=== PATIENT | male | born 1950 | race Caucasian/White ===

== ENCOUNTER 2023-12-25 08:59 | Day surgery (SDC) | payer MEDICARE, SELFPAY ==
[2023-12-21 14:09] VITALS: BMI 29.6
--- NOTE | 2023-12-24 09:34 | HO.ANESPROP2 ---
Documented by User: Rizwana Meza NP 12/24/23 09:37 HPI - Anesthesia Eval Consult details Narrative: 73yo M for Upper Endoscopy and Colonoscopy Follows [facility] q2 years. Last office visit 11/2023. Pt stable, very active with bike riding and splitting wood. [facility] Past Medical History Medical History Arthritis Low back pain History of skin cancer History of prostate cancer Mitral regurgitation PVC's (premature ventricular contractions) Impaired glucose tolerance Hyperlipidemia Hypertension GERD (gastroesophageal reflux disease) Surgical History Surgical History Hx of hernia repair (~2013) Hx of colonoscopy History of esophagogastroduodenoscopy (EGD) Social History Social History Patient Tobacco Use Status: Never used Tobacco Meds Allergies Allergy/AdvReac Type Severity Reaction Status Date / Time Sulfa (Sulfonamide Allergy Rash Verified 12/21/23 14:40 Antibiotics) Home Medications Medication Instructions Recorded Confirmed Last Taken Type Tums PRN Heartburn 12/21/23 12/21/23 Unknown History aspirin 81 mg chewable tablet 81 mg PO DAILY 12/21/23 12/21/23 12/17/23 History atorvastatin 20 mg tablet 20 mg PO DAILY 12/21/23 12/21/23 Unknown History cholecalciferol (vitamin D3) 25 25 mcg PO DAILY 12/21/23 Unknown History mcg (1,000 unit) capsule (Vitamin D3) magnesium 250 mg tablet 250 mg PO DAILY 12/21/23 Unknown History multivitamin 1 tab PO DAILY 12/21/23 Unknown History tamsulosin 0.4 mg capsule 0.4 mg PO DAILY 12/21/23 12/21/23 Unknown History Exam Height,Weight and Vital Signs: Height 5 ft 10 in Weight 93.44 kg Narrative Narrative: ECHO 2022 LV nml in size, wall thickness and sytolic function. EF 55-65% Mild to mod mitral regurg RV nml in size and function Tricuspid valve nml in structure and function. Mild regurg. No signif change c/w 12/2021 Assessment and Plan Assessment Anesthesia Assessment: Chart Reviewed Documented by User: Anisha Babin MD 12/25/23 09:54 [facility] Active Problems Active Problems: HTN GERD Hyperlipidemia Mitral regurgitatin PVCs BPH Past Medical History Medical History Arthritis Low back pain History of skin cancer History of prostate cancer Mitral regurgitation PVC's (premature ventricular contractions) Impaired glucose tolerance Hyperlipidemia Hypertension GERD (gastroesophageal reflux disease) Family History Family history of problems with anesthesia: No Surgical History Surgical History Hx of hernia repair (~2013) Hx of colonoscopy History of esophagogastroduodenoscopy (EGD) History of Problems with Anesthesia: No Social History Social History Patient Tobacco Use Status: Never used Tobacco Meds Allergies Allergy/AdvReac Type Severity Reaction Status Date / Time Sulfa (Sulfonamide Allergy Rash Verified 12/21/23 14:40 Antibiotics) Home Medications Medication Instructions Recorded Confirmed Last Taken Type Tums PRN Heartburn 12/21/23 12/21/23 Unknown History aspirin 81 mg chewable tablet 81 mg PO DAILY 12/21/23 12/21/23 12/17/23 History atorvastatin 20 mg tablet 20 mg PO DAILY 12/21/23 12/21/23 Unknown History cholecalciferol (vitamin D3) 25 25 mcg PO DAILY 12/21/23 Unknown History mcg (1,000 unit) capsule (Vitamin D3) magnesium 250 mg tablet 250 mg PO DAILY 12/21/23 Unknown History multivitamin 1 tab PO DAILY 12/21/23 Unknown History tamsulosin 0.4 mg capsule 0.4 mg PO DAILY 12/21/23 12/21/23 Unknown History Exam Height,Weight and Vital Signs: Height 5 ft 10 in Weight 93.44 kg Vital Signs Temp Pulse Resp BP Pulse Ox O2 Del Method 97.6 F 68 18 163/76 H 98 Room Air 12/25/23 09:12/25/23 09:12/25/23 09:01 12/25/23 09:01 12/25/23 09:01 12/25/23 09:01 Airway Mallampati Class: III TM Dist: >3cm Neck ROM: Full Loose/Missing/Broken Teeth: Yes (Missing top right back) Heart: RRR. No murmur appreciated Lungs: RRR Assessment and Plan Assessment Anesthesia Assessment: Anesthesia Plan Discussed and Chart Reviewed Final Anesthetic Review Family History of Problems with Anesthesia: No History of Problems with Anesthesia: No NPO: Yes ASA Class: II Final Preanesthetic Review: No Changes in Pt Med Stat, Meds/Allgs Chart Reviewed, Consent Obtained/Reviewed and Anes Risks/Benef Reviewed Patient Risk: Low Procedure Risk: Low Assessment/Block/Sedation in SS: Assess/Block/Sedation-SS Anesthetic Plan Anesthetic Plan: MAC: and TIVA Disposition: Standard PACU
[2023-12-25 09:01] VITALS: BP 163/76; PULSE 68; RESP 18; TEMP 36.4; O2SAT 98; BMI 29.6
[2023-12-25] MEDS: Lactated Ringers 1,000 ML 100 ML IVCONT (09:20)
--- NOTE | 2023-12-25 09:39 | MHC.SHP ---
Pre-Procedural Eval Section A - 24 Hr Update-Section A only Date of Service: 12/25/23 Section B - Complete if H&P > 30 days Chief Complaint: screening,Gastric intestinal metaplasia, unspecifi Details of Present Illness: see H&P no changes Relevant Family History (Specify if Yes): No Relevant Social History: None Present Medications: see Short Stay Collaborative assessment Medical History: No relevant PMH History of Previous Operations: No relevant previous surgery Allergies: Allergies Allergy/AdvReac Type Severity Reaction Status Date / Time Sulfa (Sulfonamide Allergy Rash Verified 12/21/23 14:40 Antibiotics) Review of Systems Sugical H&P ROS: Negative: Constitution, Cardiovascular, Respiratory, Neurological, Psychiatric, Hem-Onc, Allergic/Immunologic, Gastrointestinal, Genitourinary, Musculoskeletal, Integumentary, Endocrine and Eyes/Ears/Nose/Throat Exam Surgical H&P Exam: Normal: HEENT, Normal: Heart, Normal: Lungs, Normal: Extremities, Normal: Abdomen, Normal: Skin and Normal: Neurological Plan Diagnosis/Plan: Unchanged I have reviewed the history and physical and performed a pertinent physical examination on my patient. No changes have occurred unless specified. Time Spent With Patient Time: Total time managing care of this patient today ____ minutes.
[2023-12-25 10:29] VITALS: BP 111/64; PULSE 48; RESP 16; TEMP 36.4; O2SAT 99
[2023-12-25 10:44] VITALS: BP 109/67; PULSE 47; RESP 18; O2SAT 98
[2023-12-25 10:59] VITALS: BP 111/66; PULSE 47; RESP 18; TEMP 36.4; O2SAT 99
--- NOTE | 2023-12-25 11:25 | OP_ITS ---
DATE OF SERVICE: 12/25/2023 SURGEON: Luis Guardado MD INDICATIONS: 1. Gastric intestinal metaplasia. 2. Colon cancer screening and prior history of adenomatous colon polyps. PREOPERATIVE DIAGNOSIS: POSTOPERATIVE DIAGNOSIS: PROCEDURE PERFORMED: Upper endoscopy with biopsy, colonoscopy to the terminal ileum with snare polypectomy and biopsy. ESTIMATED BLOOD LOSS: COMPLICATIONS: ANESTHESIA: Medications: Monitored anesthesia care. ASSISTANTS: SPECIMENS: DESCRIPTION OF PROCEDURE: A History and Physical was performed. The risks and benefits of the procedure were explained to the patient and informed consent was obtained. The patient was placed in the left lateral decubitus position. A digital rectal exam was performed and was found to be normal. The Olympus video gastroscope was introduced into the esophagus, stomach, and duodenum. Examination was performed and the scope was removed. He was repositioned for colonoscopy. The Olympus pediatric video colonoscope was introduced into the rectum and advanced to the cecum. The cecum was identified by transillumination, palpation, and identification of the ileocecal valve. Examination was performed and the scope was removed. He tolerated both procedures well and was returned to the recovery area in stable condition. FINDINGS: Upper Endoscopy: Esophagus: The esophagus was normal. There was an irregular EG junction. There was no esophagitis. Stomach: The stomach showed no evidence of masses, ulcers, or polyps. Biopsies were obtained throughout the stomach to evaluate for extent of gastric intestinal metaplasia. Duodenum: The bulb and second portion were normal. Colonoscopy: The terminal ileum was normal. There was a 6 mm polyp, which was removed with a cold snare and biopsy forceps in the cecum, just above the ileocecal valve. There was a less than 5 mm rectal polyp, which was removed with a biopsy forceps. There was mild sigmoid diverticulosis. The quality of the prep was good. Retroflexed examination showed moderate-sized internal hemorrhoids. IMPRESSION: 1. Gastric intestinal metaplasia. 2. Colon polyps. RECOMMENDATION: Follow up with the biopsy results. MD YASMIN Mackey/JOSHUA / [id number] MTDD
== END 2023-12-25 11:26 | disposition home or self-care (01) ==
PROVIDERS: PCP Internal Medicine; Visit Provider Internal Medicine Gastroenterology
PROC: (CPT 43239; principal; 2023-12-25 10:00)
DX: K31.A0 Gastric intestinal metaplasia, unspecified (principal); K22.9 Disease of esophagus, unspecified; K21.9 Gastro-esophageal reflux disease without esophagitis; Z12.11 Encounter for screening for malignant neoplasm of colon; D12.0 Benign neoplasm of cecum; K62.1 Rectal polyp; K57.30 Diverticulosis of large intestine without perforation or abscess without bleeding; K64.8 Other hemorrhoids; Z86.010 Personal history of colon polyps; I10 Essential (primary) hypertension; E78.5 Hyperlipidemia, unspecified; Z85.46 Personal history of malignant neoplasm of prostate; Z85.828 Personal history of other malignant neoplasm of skin; Z79.82 Long term (current) use of aspirin; Z79.02 Long term (current) use of antithrombotics/antiplatelets; Z79.899 Other long term (current) drug therapy
CPT/HCPCS: 43239; 45385; 45380; 88305; 88313; 88342; J2704